=== PATIENT | female | born 1975 | race African-American/Black ===

== ENCOUNTER 2017-08-05 07:54 | Emergency (ER) | payer OTHER ==
[2017-08-05 07:58] VITALS: BP 124/69; PULSE 99; TEMP 99.4; BMI 39.3
[2017-08-05] MEDS ORDERED: ALBUTEROL SO4 2.5/IPRATROPIUM 0.5 INH SOL 3 ML VIAL.NEB. NEB ONE ×2 (08:33→09:18)
--- NOTE | 2017-08-05 09:05 | PDOC ---
History of Present Illness - General Chief Complaint: Respiratory Stated Complaint: CHEST PAIN/S.O.B. 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 Body aches. Tactile fever. Sore throat. Past Medical History: [Denies]. Allergies: No known allergies Medications: [None] Family History: Non-contributory Social History: Denies smoking, alcohol use, or IVDU Review of Systems GENERAL/CONSTITUTIONAL: [Tactile fever and body aches. No weakness. No weight change.] HEAD, EYES, EARS, NOSE AND THROAT: [No change in vision. No ear pain or discharge. Sore throat] CARDIOVASCULAR: [No chest pain or shortness of breath.] RESPIRATORY: [Moist cough, no wheezing, or hemoptysis.] GASTROINTESTINAL: [No nausea, vomiting, diarrhea or constipation. No rectal bleeding.] GENITOURINARY: [No dysuria, frequency, or change in urination.] MUSCULOSKELETAL: [No joint or muscle swelling or pain. No neck or back pain.] SKIN AND BREASTS: [No rash or easy bruising.] NEUROLOGIC: [No headache, vertigo, loss of consciousness, or loss of sensation.] Physical Exam: GENERAL: [The patient is awake, alert, and fully oriented, in no acute distress. ] EYES: [Pupils equal, round and reactive to light, extraocular movements intact, sclera anicteric, conjunctiva clear.] ENT: [Ears normal, nares patent, oropharynx erythematous without exudates. Moist mucous membranes. No uvula deviation] NECK: [Normal range of motion, supple without lymphadenopathy, JVD, or masses.] LUNGS: [Breath sounds equal, rhonchi bilaterally no coughing, bronchospasm] HEART: [Regular rate and rhythm, normal S1 and S2 without murmur, rub or gallop. ] ABDOMEN: [Soft, nontender, normoactive bowel sounds. No guarding, no rebound. No masses. No bruising or abrasions] MUSCULOSKELETAL: [Normal range of motion, no edema. No clubbing or cyanosis. No cords, erythema, or tenderness. No CVA Tenderness with fist.] NEUROLOGICAL: [Cranial nerves II through XII grossly intact. Normal speech, normal gait.] SKIN: [Warm, Dry, normal turgor, no rashes or lesions noted.] Past History - Past Medical History Allergies/Adverse Reactions: Allergies Allergy/AdvReac Type Severity Reaction Status Date / Time No Known Drug Allergies Allergy Verified 08/05/17 07:58 Home Medications: Ambulatory Orders Albuterol Sulfate Inhaler - [Ventolin HFA Inhaler -] 2 inh PO Q4H #1 inh Azithromycin [Zithromax 250mg Tablets -] 250 mg PO UTDICT #6 tab 08/05/17 Oseltamivir Phosphate [Tamiflu -] 75 mg PO BID #10 capsule 08/05/17 Asthma: No Cancer: No Cardiac Disorders: No COPD: No Diabetes: No HTN: No Seizures: No Thyroid Disease: No - Suicide/Smoking/Psychosocial Hx Smoking Status: Yes Smoking History: Never smoked Number of Cigarettes Smoked Daily: 0 Hx Alcohol Use: No Drug/Substance Use Hx: No Hx Substance Use Treatment: No *Physical Exam - Vital Signs Last Vital Signs Temp Pulse Resp BP Pulse Ox 99.4 F 99 H 18 124/69 95 08/05/17 07:55 08/05/17 07:55 08/05/17 07:55 08/05/17 07:55 08/05/17 07:55 ED Treatment Course - Medications Given in the ED: ED Medications Discontinued Medications Generic Name Dose Route Start Last Admin Trade Name Freq PRN Reason Stop Dose Admin Albuterol/Ipratropium 1 amp 08/05/17 08:33 08/05/17 08:40 Duoneb - NEB 08/05/17 08:34 1 amp ONCE ONE Administration Medical Decision Making - Medical Decision Making 08/05/17 09:04 A/P: Patient with generalized body aches, fever, sore throat, cough although patient with cough posterior pharynx is erythematous and painful will send rapid strep patient also with clinical signs of influenza I've explained to patient we are unable to test at this time there is noreagent. Combivent given with good results O2 sats 100% on room air with patient noted with decreased cough. EKG was performed. Twelve-lead EKG was performed and reviewed by me. There is normal sinus rhythm with a normal rate. The axis is normal. The intervals are normal. There are no ST or T wave abnormalities. Impression: Normal twelve-lead EKG Rapid strep pending. 08/05/17 09:15 Strep is negative, she will be URI, influenza-type illness will DC on Tamiflu and azithromycin, albuterol inhaler. I discussed the physical exam findings, ancillary test results and final diagnoses with the patient. I answered all of the patient's questions. The patient was satisfied with the care received and felt comfortable with the discharge plan and treatment plan. The patient will call to arrange follow-up and will return to the Emergency Department with any new, persistent or worsening symptoms. *DC/Admit/Observation/Transfer Diagnosis at time of Disposition: Influenza-like illness URI (upper respiratory infection) Qualifiers: URI type: unspecified URI Qualified Code(s): J06.9 - Acute upper respiratory infection, unspecified - Discharge Dispostion Disposition: HOME Condition at time of disposition: Stable Admit: No - Prescriptions Prescriptions: Albuterol Sulfate Inhaler - [Ventolin HFA Inhaler -] 2 inh PO Q4H #1 inh Azithromycin [Zithromax 250mg Tablets -] 250 mg PO UTDICT #6 tab Oseltamivir Phosphate [Tamiflu -] 75 mg PO BID #10 capsule - Referrals Referrals: Jb Echavarria MD [Primary Care Provider] - - Patient Instructions Additional Instructions: Keep head of bed elevated 45 when sleeping Treatments every 4 hours as needed Cool air humidifier Frequent chest PT Motrin for fever greater than 101 Followup in the primary care doctor's office in 2 days for evaluation. If any respiratory distress, increased cough, inability to drink, increased wheezing please return immediately to emergency department. - Post Discharge Activity Forms/Work/School Notes: Back to Work
--- NOTE | 2017-08-05 16:26 | EKG ---
Test Reason : Blood Pressure : / mmHG Vent. Rate : 086 BPM Atrial Rate : 086 BPM P-R Int : 168 ms QRS Dur : 082 ms QT Int : 364 ms P-R-T Axes : 077 063 043 degrees QTc Int : 435 ms NORMAL SINUS RHYTHM WITH SINUS ARRHYTHMIA NORMAL ECG WHEN COMPARED WITH ECG OF 07-OCT-2011 16:06, NO SIGNIFICANT CHANGE WAS FOUND Confirmed by ALEKSANDRA COLORADO MD ([id number]) on 08/05/2017 4:26:33 PM Referred By: Hilda PALENCIA Confirmed By:ALEKSANDRA COLORADO MD
== END 2017-08-05 09:25 | disposition home or self-care (01) ==
LOC: JERFT 07:54
PROC: 3E0F7GC Introduction of Other Therapeutic Substance into Respiratory Tract, Via Natural or Artificial Opening (ICD-10-PCS; principal; 2017-08-05)
DX: J11.1 Influenza due to unidentified influenza virus with other respiratory manifestations (principal)
CPT/HCPCS: 87070; 87430; 93005; 93010; 99281-25

== ENCOUNTER → 2020-01-23 | Day surgery (SDC) | payer OTHER ==
--- NOTE | 2020-01-25 16:26 | PATH ---
Surgical Pathology Report Patient Name: HEMANT GRANDE [facility]. Rec. #: [id number] /Age/Gender: 1975 (Age: 44) / F Account: [id number] Location: [facility] Taken: 01/23/2020 Received: 01/23/2020 Reported: 02/17/2020 Physicians: Heather Argueta M.D. Specimen(s) Received RIGHT BREAST CORE BIOPSY 11:00 Clinical History Palpable mass Ultrasound findings: Suspicious Right breast 11:00 1.1 cm vascular mass Final Diagnosis BREAST, RIGHT, 11:00, ULTRASOUND GUIDED CORE BIOPSY: ATYPICAL B-CELL PROLIFERATION WITH PLASMACYTIC DIFFERENTIATION, SUSPICIOUS FOR B-CELL LYMPHOMA (SEE COMMENT). Comment: The findings of disrupted germinal centers and marked predominance of lambda-restricted plasma cells is suggestive of marginal zone lymphoma or lymphoplasmacytic lymphoma. However, assessment of lymphoid architecture is limited by the small amount of material in the needle biopsy. Please correlate with clinical, radiographic and other laboratory findings. Molecular studies for B-cell clonality by PCR are in process and the results will be issued in a separate report. [facility] [place] [place] [facility] and [facility]; the above diagnosis was rendered there by Dr.Albert Vora. See also complete [facility] report:[id number]. Note: No glandular breast parenchyma is identified. Cytokeratin (AE1/3) immunostain is negative. Findings conveyed to Dr.Grace Jackson on 02/17/20. Electronically Signed Jenna Restrepo M.D. Amendments Amended: 02/17/2020 Previous Signout Date: 01/25/2020 Comment: Case being amended based on additional immunohistochemical work-up and consultation Amended: 02/17/2020 Previous Signout Date: 02/17/2020 Addendum Reported: 02/21/2020 Addendum Diagnosis Results of B cell clonality analysis performed at [place], [place] ([id number]) are as follows: Clonal B-cell population detected. Interpretation: POSITIVE for clonal IgH gene rearrangement. Comment: Positive results most often indicate a B-cell malignancy. Rarely, positive results may be seen in non-malignant conditions. Results should be interpreted in the context of clinical status and correlation with cytogenetics, morphology, flow cytometry, histopathology and immunophenotype. Jenna Restrepo M.D. Gross Description Received in formalin labeled "right 11:00," are 4 weaver-yellow, cylindrical portions of fibroadipose tissue ranging from 0.7-1.4 cm in length and averaging 0.1 cm in diameter. The specimens are submitted in toto in one cassette. Time to formalin fixation: < 1 minute Total formalin fixation time: Approximately 8 hours. 01/23/2020 [facility]01/23/2020
== END | disposition home or self-care (01) ==
LOC: JRADUS-SUR 08:57
PROVIDERS: ATTEND Family Medicine Geriatric Medicine
PROC: 0H9T3ZX Drainage of Right Breast, Percutaneous Approach, Diagnostic (ICD-10-PCS; principal; 2020-01-23)
DX: D24.1 Benign neoplasm of right breast (principal)
CPT/HCPCS: 19083; 87899; 88305-TC; A4648